=== PATIENT | male | born 1985 | race Two or more races ===

== ENCOUNTER 2021-07-10 18:00 | Emergency (ER) | payer OTHER ==
[2021-07-10 18:35] VITALS: BP 137/79; PULSE 73; TEMP 97.8; BMI 34.7
[2021-07-10] MEDS ORDERED: diazePAM 2 MG TABLET PO ONE (19:48)
[2021-07-10] MEDS ORDERED: KETOROLAC TROMETHAMINE 30 MG/1 ML VIAL IM ONE (19:48)
[2021-07-10] MEDS ORDERED: LIDOCAINE 5% TOPICAL PATCH TP ONE (19:48)
[2021-07-10] MEDS ORDERED: diazePAM 2 MG TABLET ONE (20:04)
[2021-07-10] MEDS ORDERED: KETOROLAC TROMETHAMINE 30 MG/1 ML VIAL ONE (20:05)
[2021-07-10] MEDS ORDERED: LIDOCAINE 5% TOPICAL PATCH ONE (20:05)
[2021-07-10] MEDS ORDERED: LIDOCAINE PATCH REMOVAL MC SCH (22:00)
== END 2021-07-10 20:16 | disposition home or self-care (01) ==
LOC: JERFT 18:00
PROC: 3E0233Z Introduction of Anti-inflammatory into Muscle, Percutaneous Approach (ICD-10-PCS; principal; 2021-07-10)
DX: M54.6 Pain in thoracic spine (principal)
CPT/HCPCS: 99284-25